=== PATIENT | female | born 1965 | race Caucasian/White ===

== ENCOUNTER → 2024-12-28 | Outpatient (CLI) | payer OTHER ==
[~2024-12-28] MED LIST: ALBU4; PROMETH-CODEIN 65 ML PO; Zithromax250 MG PO; Zofran4 MG PO
== END | disposition home or self-care (01) ==
LOC: LAB SHORT 17:23 → LAB 17:23
DX: M25.561 Pain in right knee (principal)
CPT/HCPCS: 84550; 85651